=== PATIENT | female | born 1985 | race Caucasian/White ===

== ENCOUNTER 2021-10-05 13:09 | Emergency (ER) | payer OTHER ==
[2021-10-05 14:16] LABS: INFLUENZA A NAA NEGATIVE (NEGATIVE)
[2021-10-05 14:19] LABS: CORONAVIRUS 2019 SARS-COV-2 POSITIVE (NEGATIVE)
== END 2021-10-05 14:59 | disposition home or self-care (01) ==
LOC: FER 13:09
PROVIDERS: Physician Assistant
DX: U07.1 COVID-19 (principal); F17.210 Nicotine dependence, cigarettes, uncomplicated; Z28.310 Unvaccinated for COVID-19
CPT/HCPCS: 87880; 99283; U0002